=== PATIENT | male | born 1945 | race Caucasian/White ===

== ENCOUNTER → 2021-10-18 | Outpatient (CLI) | payer MEDICARE, BC ==
[~2021-10-18] MED LIST: IOPAMIDOL 370 MG/ML 100 ML INFUS..BTL INJ ONE; SODIUM CHLORIDE 0.9% 100 ML ONE
[2021-10-18 09:42] LABS: CREATININE, SERUM 0.68 mg/dL (0.72-1.25)
== END ==
LOC: CT 08:25
PROVIDERS: ATTEND Family Medicine
DX: I70.203 Unspecified atherosclerosis of native arteries of extremities, bilateral legs (principal)
CPT/HCPCS: 36415; 75635; 82565; 84520; J7050; Q9967

== ENCOUNTER → 2022-01-16 | Outpatient (CLI) | payer MEDICARE, BC ==
[2022-01-16 13:12] LABS: ABG HCO3 24 mmol/L (22-26); ABG PCO2 38 mmHg (35-45); ABG PH 7.41 (7.35-7.45); ABG PO2 88 mmHg (80-105); ABG TCO2 25
== END ==
LOC: RESP 09:27
PROVIDERS: ATTEND Internal Medicine Pulmonary Disease
DX: J44.9 Chronic obstructive pulmonary disease, unspecified (principal)
CPT/HCPCS: 36415; 36600; 82805